=== PATIENT | female | born 1975 | race Caucasian/White ===

== ENCOUNTER 2021-05-24 15:47 | Emergency (ER) | payer BC ==
[~2021-05-24] VITALS: Ht 162.6 cm; Wt 72.6 kg
[2021-05-24] MEDS ORDERED: TRAMADOL HCL 50 MG TAB PO ONE (16:15)
[2021-05-24] MEDS ORDERED: ACETAMINOPHEN 325 MG TAB ONE (16:49)
[2021-05-24] MEDS ORDERED: ACETAMINOPHEN 325 MG TAB PO ONE (19:00)
== END 2021-05-24 18:52 | disposition home or self-care (01) ==
LOC: FSED 15:52
DX: M54.9 Dorsalgia, unspecified (principal); V89.2XXA Person injured in unspecified motor-vehicle accident, traffic, initial encounter
CPT/HCPCS: 72125; 72128; 72131; 99283